=== PATIENT | female | born 1985 | race Two or more races ===

== ENCOUNTER 2018-01-21 21:49 | Emergency (ER) | payer SELFPAY ==
[~2018-01-21] VITALS: Ht 157.5 cm; Wt 91.0 kg
[2018-01-22] MEDS ORDERED: ACETAMINOPHEN WITH CODEINE 300/30MG TABLET PO STA (02:04)
[2018-01-22 02:33] LABS: CLARITY URINE CLEAR (CLEAR); COLOR URINE YELLOW (YELLOW); KETONES URINE NEGATIVE (NEGATIVE); LEUKOCYTE ESTERASE URINE NEGATIVE (NEGATIVE); NITRITE URINE NEGATIVE (NEGATIVE); OCCULT BLOOD URINE 2+ (NEGATIVE); PH URINE 5.5 (4.5-8.0); PROTEIN URINE NEGATIVE (NEGATIVE); SPECIFIC GRAVITY URINE 1.019 (1.005-1.030); UROBILINOGEN URINE 0.2 E.U./dL (0.2-1.0)
[2018-01-22 03:09] LABS: BASOPHILS % 0.5 % (0.0-2.0); EOSINOPHILS % 1.5 % (0.0-5.0); HEMATOCRIT. 32.3 % (36.0-48.0); HEMOGLOBIN. 10.6 g/dL (12.0-16.0); LYMPHOCYTES % 34.2 % (20.0-50.0); MEAN CORPUSCULAR HEMOGLOBIN 26.9 pg (28.0-32.0); MEAN CORPUSCULAR VOLUME 81.7 fL (81.0-99.0); MEAN PLATELET VOLUME 8.3 fl (7.4-10.4); MONOCYTES % 7.7 % (2.0-8.0); NEUTROPHILS % 56.1 % (40.0-76.0); PLATELET 262 x1000/uL (130-400); RED BLOOD CELL COUNT 3.95 mill/uL (4.2-5.4); RED CELL DISTRIBUTION WIDTH 14.5 % (11.6-14.6)
[2018-01-22 03:18] LABS: PROTHROMBIN TIME 10.3 sec (9.4-11.6)
[2018-01-22 03:19] LABS: CHLORIDE 109 mEq/L (98-107)
[2018-01-22] MEDS ORDERED: IBUPROFEN 600MG TABLET PO ONE (05:15)
[2018-01-22 05:43] VITALS: BP 108/70
== END 2018-01-22 05:40 | disposition home or self-care (01) ==
LOC: ER 21:49
DX: R10.31 Right lower quadrant pain (principal); R11.0 Nausea
CPT/HCPCS: 36415; 74176; 80053; 81003; 81025; 85025; 85610; 99285; Z7610

== ENCOUNTER 2020-07-26 11:33 | Emergency (ER) | payer MEDICAID, OTHER ==
[~2020-07-26] VITALS: Ht 160 cm; Wt 88.4 kg
[2020-07-26 11:37] VITALS: BP 144/78
[2020-07-26 13:02] LABS: CLARITY URINE CLOUDY (CLEAR); COLOR URINE DARK YELLOW (YELLOW); KETONES URINE TRACE (NEGATIVE); LEUKOCYTE ESTERASE URINE 2+ (NEGATIVE); NITRITE URINE POSITIVE (NEGATIVE); OCCULT BLOOD URINE TRACE (NEGATIVE); PROTEIN URINE NEGATIVE (NEGATIVE)
== END 2020-07-26 14:00 | disposition home or self-care (01) ==
LOC: ER 12:09
DX: N30.90 Cystitis, unspecified without hematuria (principal); Z98.890 Other specified postprocedural states
CPT/HCPCS: 81003; 81025; 99283

== ENCOUNTER 2022-05-02 19:07 | Emergency (ER) | payer OTHER ==
[~2022-05-02] VITALS: Ht 157.5 cm; Wt 94.0 kg
[2022-05-02 19:32] VITALS: BP 142/79
[2022-05-02] MEDS ORDERED: KETOROLAC 60MG/2ML VIAL IM STA (21:26)
[2022-05-02 21:42] LABS: CLARITY URINE CLEAR (CLEAR); COLOR URINE YELLOW (YELLOW); KETONES URINE NEGATIVE (NEGATIVE); LEUKOCYTE ESTERASE URINE 1+ (NEGATIVE); NITRITE URINE NEGATIVE (NEGATIVE); OCCULT BLOOD URINE NEGATIVE (NEGATIVE); PROTEIN URINE NEGATIVE (NEGATIVE); SPECIFIC GRAVITY URINE 1.022 (1.005-1.030)
[2022-05-02] MEDS ORDERED: CEPH500C2 MT (22:01)
[2022-05-02] MEDS ORDERED: IBUP-2029 MT (22:01)
[2022-05-02] MEDS ORDERED: DIF15 MT (22:12)
== END 2022-05-02 22:15 | disposition home or self-care (01) ==
LOC: ER 19:07
DX: N30.00 Acute cystitis without hematuria (principal); N10 Acute pyelonephritis; Z98.890 Other specified postprocedural states
CPT/HCPCS: 81003; 96372; 99283; J1885